=== PATIENT | female | born 1960 | race African-American/Black ===

== ENCOUNTER → 2018-11-17 | Outpatient (CLI) | payer MEDICARE, MEDICAID | LOC: MSC 14:00 | PROVIDERS: ATTEND Anesthesiology | DX: G89.4 Chronic pain syndrome (principal); M79.7 Fibromyalgia; M51.36 Other intervertebral disc degeneration, lumbar region; M17.11 Unilateral primary osteoarthritis, right knee; M19.011 Primary osteoarthritis, right shoulder; M19.012 Primary osteoarthritis, left shoulder; M25.9 Joint disorder, unspecified; M70.61 Trochanteric bursitis, right hip; M62.830 Muscle spasm of back; Z79.891 Long term (current) use of opiate analgesic; Z79.899 Other long term (current) drug therapy ==

== ENCOUNTER 2018-12-15 11:30 | Outpatient (CLI) | payer MEDICARE, MEDICAID | END 2018-12-15 23:59 | LOC: MSC 11:30 | PROVIDERS: ATTEND Anesthesiology | DX: G89.4 Chronic pain syndrome (principal); M51.36 Other intervertebral disc degeneration, lumbar region; M79.7 Fibromyalgia; M62.830 Muscle spasm of back; M17.11 Unilateral primary osteoarthritis, right knee; M19.012 Primary osteoarthritis, left shoulder; M19.011 Primary osteoarthritis, right shoulder; M70.61 Trochanteric bursitis, right hip; Y93.9 Activity, unspecified; Y92.89 Other specified places as the place of occurrence of the external cause; M25.9 Joint disorder, unspecified; M25.562 Pain in left knee; Z79.891 Long term (current) use of opiate analgesic; Z79.899 Other long term (current) drug therapy ==

== ENCOUNTER 2019-01-19 10:00 | Outpatient (CLI) | payer MEDICARE, MEDICAID | END 2019-01-19 23:59 | disposition home or self-care (01) | LOC: MSC 10:00 | PROVIDERS: ATTEND Anesthesiology | DX: M19.012 Primary osteoarthritis, left shoulder (principal); M19.011 Primary osteoarthritis, right shoulder; M51.36 Other intervertebral disc degeneration, lumbar region; M62.830 Muscle spasm of back; G89.4 Chronic pain syndrome; M79.7 Fibromyalgia; M17.11 Unilateral primary osteoarthritis, right knee; M70.61 Trochanteric bursitis, right hip; M25.9 Joint disorder, unspecified ==